=== PATIENT | male | born 1945 | race Caucasian/White ===

== ENCOUNTER → 2021-02-16 | Outpatient (CLI) | payer MEDICARE ==
--- NOTE | 2021-02-16 17:36 | MR ---
EXAMINATION TYPE: MR lumbar spine wo con DATE OF EXAM: 02/16/2021 COMPARISON: None HISTORY: Low back pain for 1 year. TECHNIQUE: Multiplanar, multisequence images of the lumbar spine were acquired without IV contrast. L1-L2: Small central posterior disc bulge causes anterior mass effect on the thecal sac. No significa nt foraminal encroachment. There is some facet arthropathy with hypertrophy ligamentum flavum. L2-L3: There is mild spinal stenosis, facet arthropathy with hypertrophy ligamentum flavum causes pos terior lateral mass effect on the thecal sac. Circumferential extension endplate disc complex results in bilateral foraminal encroachment, there is minimal retrolisthesis grade 1 L2-3. Anterior mass eff ect is noted on the thecal sac. L3-L4: Posterior broad-based disc bulge causes anterior mass effect on the thecal sac, circumferentia l extension endplate disc complex encroaches on the inferior aspect of the neural foramen greater on the right than on the left. Broad-based posterior disc bulge causes anterior mass effect on the theca l sac. There is facet arthropathy with hypertrophy ligamentum flavum causing posterior lateral mass e ffect on the thecal sac. Suspect some encroachment on the lateral recesses. L4-L5: Minimal anterolisthesis grade 1. Circumferential extension of disc material with associated en dplate, listhesis contributes to cause foraminal encroachment greater on the right, inferior aspect o f the left neural foramen. There is facet arthropathy change. There is encroachment on the lateral re cess bilaterally. Hypertrophic changes of the facet results in a trefoil appearance of the thecal sac , there is probable synovial cyst also present on the left causing some lateral mass effect on the th ecal sac, axial image #14, spinal stenosis is moderate to severe. L5-L6: Normal disc appearance without desiccation. No herniation, protrusion or disc bulging. No ca nal stenosis is present. Foramina are patent bilaterally. Lumbar segments are intact. No paraspinal masses are identified. Conus medullaris has a normal appe arance, termination at L1-2. There is a transitional vertebral body present at the lumbosacral juncti on denoted as L6. Lumbar vertebral bodies show preserved height. Is multilevel spondylosis, endplate discogenic marrow signal change. Loss of disc signal is consistent with disc desiccation, L2-3 shows loss of disc height and signal. IMPRESSION: Correlate with plain film prior to any intervention, transitional vertebral body noted. Degenerative disc disease, facet arthropathy, multilevel foraminal encroachment, spinal stenosis
== END | disposition home or self-care (01) ==
LOC: RADMRIMAIN 11:55
PROVIDERS: ATTEND Orthopaedic Surgery
DX: M51.36 Other intervertebral disc degeneration, lumbar region (principal); M47.816 Spondylosis without myelopathy or radiculopathy, lumbar region; M48.061 Spinal stenosis, lumbar region without neurogenic claudication
CPT/HCPCS: 72148

== ENCOUNTER → 2021-12-21 | Outpatient (CLI) | payer MEDICARE ==
--- NOTE | 2021-12-21 10:10 | XR ---
EXAMINATION TYPE: XR chest 2V DATE OF EXAM: 12/21/2021 10:00 AM COMPARISON: CT chest 05/17/2012 TECHNIQUE: XR chest 2V Frontal and lateral views of the chest. CLINICAL INDICATION:Male, 76 years old with history of R05.9 Cough; FINDINGS: Lungs/Pleura: There is no evidence of pleural effusion, focal consolidation, or pneumothorax. Pulmonary vascularity: Unremarkable. Heart/mediastinum: Cardiomediastinal silhouette is mildly enlarged. Post CABG changes. Musculoskeletal: No acute osseous pathology. Midline sternotomy wires are noted and stable. Bilateral shoulder arthropathy. Degenerative changes of visualized spine. Other findings: Cholecystectomy clips in the right upper quadrant. IMPRESSION: No acute cardiopulmonary disease/process.
== END | disposition home or self-care (01) ==
LOC: RADXRMAIN 09:26
PROVIDERS: ATTEND Internal Medicine
DX: R05.9 Cough, unspecified (principal)
CPT/HCPCS: 71046